=== PATIENT | male | born 1955 ===

== ENCOUNTER 2025-02-27 06:03 | Inpatient (IN) ==
[2025-02-27] MEDS: DILTIAZEM 25 MG/5 ML VIAL IV ONE (06:26)
[2025-02-27 06:53] LABS: Basophils # (Auto) 0.06 K/mcL (0.00-0.30); Basophils % (Auto) 0.7 % (0.0-2.0); Eosinophils # (Auto) 0.22 K/mcL (0.00-0.70); Eosinophils % (Auto) 2.6 % (0.0-7.0); Hematocrit 46.8 % (40.1-51.0); Hemoglobin 15.8 g/dL (13.7-17.5); Lymphocytes # (Auto) 1.38 K/mcL (1.50-4.80); Lymphocytes % (Auto) 16.3 % (15.5-49.0); Mean Corpuscular HGB Conc 33.8 g/dL (31.0-36.0); Monocytes # (Auto) 1.12 K/mcL (0.10-0.90); Monocytes % (Auto) 13.2 % (1.0-12.0); Neutrophils % (Auto) 67.1 % (38.0-78.0); Platelet Count 221 K/mcL (140-440); RBC 4.62 M/mcL (4.63-6.08); WBC 8.5 K/mcL (4.5-11.0)
[2025-02-27] MEDS: DILTIAZEM 125 MG in DEXTROSE 5% IN WATER 100 ML IV SCH (07:00)
[2025-02-27 07:19] LABS: ALT/SGPT 57 U/L (<40); AST/SGOT 44 U/L (<40); Albumin 4.1 gm/dL (3.2-5.2); Albumin/Globulin Ratio 1.4 (1.0-2.3); Alkaline Phosphatase 123 U/L (39-117); Anion Gap 13.0 (8.0-16.0); Bilirubin,Total 0.8 mg/dL (0.1-1.0); Blood Urea Nitrogen 11 mg/dL (8-23); C-Reactive Protein 0.70 mg/dL (0.03-0.80); Calcium 9.7 mg/dL (8.6-10.4); Carbon Dioxide 25 mmol/L (22-30); Chloride 97 mmol/L (96-108); Globulin 2.9 gm/dL (2.2-3.7); Glucose 119 mg/dL (70-105); Potassium 4.1 mmol/L (3.3-5.1); Sodium 135 mmol/L (133-145); Thyroid Stimulating Hormone 2.03 uIU/mL (0.27-5.01)
[2025-02-27] MEDS ORDERED: DIAZEPAM 10 MG/2 ML SYRINGE IV PRN (10:43)
[2025-02-27] MEDS ORDERED: SENNOSIDES 1 TABLET PO PRN (10:43)
[2025-02-27] MEDS ORDERED: ONDANSETRON 4 MG/2 ML VIAL IV PRN (10:43)
[2025-02-27] MEDS: METOPROLOL TARTRATE 25 MG TABLET PO SCH (11:34)
[2025-02-27] MEDS: FUROSEMIDE 40 MG/4 ML VIAL IV SCH (11:36)
[2025-02-27] MEDS ORDERED: DEXTROSE 50% 50 ML VIAL IV PRN (12:34)
[2025-02-27] MEDS ORDERED: DEXTROSE 31 GM ORAL.SUSP PO PRN (12:34)
[2025-02-27] MEDS: THIAMINE 200 MG in 0.9 % SODIUM CHLORIDE 50 ML IV SCH (12:55)
[2025-02-27] MEDS: NICOTINE 14 MG PATCH TOPICAL SCH (13:32)
[2025-02-27] MEDS: 0.9 % SODIUM CHLORIDE 10 ML SYRINGE IV SCH ×2 (14:04→16:51)
[2025-02-27] MEDS: METOPROLOL SUCCINATE 50 MG TAB.XL.24H PO SCH (16:50)
[2025-02-27] MEDS: MAGNESIUM SULFATE 2 GM/50 ML BAG IV ONE (16:50)
[2025-02-27] MEDS: INSULIN LISPRO 1 UNIT/0.01 ML UNIT SQ SCH (17:14)
[2025-02-27] MEDS: TAMSULOSIN 0.4 MG CAPSULE PO SCH (20:05)
[2025-02-27] MEDS: INSULIN GLARGINE, HUMAN 1 UNIT/0.01 ML SQ SCH (20:05)
[2025-02-27] MEDS: ENOXAPARIN 40 MG/0.4 ML SYRINGE SQ SCH (21:41)
[2025-02-27] MEDS: MELATONIN 3 MG TABLET PO PRN (23:35)
[2025-02-28 06:50] LABS: Phosphorous 3.4 mg/dL (2.5-4.5)
[2025-02-28 06:53] LABS: ALT/SGPT 45 U/L (<40); AST/SGOT 36 U/L (<40); Albumin 3.8 gm/dL (3.2-5.2); Albumin/Globulin Ratio 1.4 (1.0-2.3); Alkaline Phosphatase 118 U/L (39-117); Anion Gap 12.0 (8.0-16.0); Bilirubin,Total 0.8 mg/dL (0.1-1.0); Blood Urea Nitrogen 13 mg/dL (8-23); Calcium 9.2 mg/dL (8.6-10.4); Carbon Dioxide 30 mmol/L (22-30); Chloride 94 mmol/L (96-108); Globulin 2.7 gm/dL (2.2-3.7); Glucose 107 mg/dL (70-105); Potassium 3.9 mmol/L (3.3-5.1); Sodium 136 mmol/L (133-145)
[2025-02-28] MEDS: LISINOPRIL 2.5 MG TABLET PO SCH (08:32)
[2025-02-28] MEDS: ATORVASTATIN 20 MG TABLET PO SCH (08:33)
[2025-02-28] MEDS: THIAMINE 100 MG/ML VIAL ONE ×2 (08:33→08:54)
[2025-02-28 08:43] LABS: Basophils # (Auto) 0.05 K/mcL (0.00-0.30); Basophils % (Auto) 0.9 % (0.0-2.0); Eosinophils # (Auto) 0.12 K/mcL (0.00-0.70); Eosinophils % (Auto) 2.1 % (0.0-7.0); Hematocrit 47.0 % (40.1-51.0); Hemoglobin 16.1 g/dL (13.7-17.5); Lymphocytes # (Auto) 1.02 K/mcL (1.50-4.80); Lymphocytes % (Auto) 17.4 % (15.5-49.0); Mean Corpuscular HGB Conc 34.3 g/dL (31.0-36.0); Monocytes # (Auto) 1.02 K/mcL (0.10-0.90); Monocytes % (Auto) 17.4 % (1.0-12.0); Neutrophils % (Auto) 62.0 % (38.0-78.0); Platelet Count 210 K/mcL (140-440); RBC 4.65 M/mcL (4.63-6.08); WBC 5.9 K/mcL (4.5-11.0)
[2025-02-28] MEDS: THIAMINE 200 MG in 0.9 % SODIUM CHLORIDE 50 ML IV SCH (08:57)
[2025-02-28] MEDS: APIXABAN 5 MG PO ONE ×3 (14:01→14:30)
[2025-02-28] MEDS ORDERED: APIXABAN 5 MG TABLET PO SCH (21:00)
[2025-03-01] MEDS ORDERED: FUROSEMIDE 40 MG TABLET PO SCH (09:00)
== END 2025-02-28 14:50 | disposition home or self-care (01) | DRG 308 ==
LOC: ED 06:03 → ICU 10:35 → MEDSUR 21:23
PROVIDERS: ADMIT Student in an Organized Health Care Education/Training Program; ATTEND Student in an Organized Health Care Education/Training Program